=== PATIENT | female | born 1995 | race Two or more races ===

== ENCOUNTER 2017-08-22 21:00 | Emergency (ER) | payer OTHER ==
--- NOTE | 2017-08-22 21:08 | EDPHY ---
General Narrative: 0344AM: Patient evaluated by Mental Health Kerrie with [facility]. Plan for re-eval in am. Borderline/SI/Depression. May need admission vs. D/c Will re-eval in am. 0646: No acute events overnight. Patient pending re-evaluation this morning. ( Carson Sánchez) 1012: Patient has been accepted by [facility] in [place]. EMTALA completed. (Laney Melchor) CHIEF COMPLAINT: Suicidal ideation, depression HISTORY OF PRESENT ILLNESS: Patient arrives by EMS with reports of suicidal ideation and depression. She reports wanting to and has extensively researched how she was going to do so. She is very forthcoming about this and appears to be excited about killing herself. She has attempted to hurt herself in the past by cutting. She also reports striking her head repeatedly on a ceramic syncope prior to arrival. She has no modifying factors or associated complaints. PSYCHIATRIC DIAGNOSES: Depression, previous suicide attempt, cutting PRIOR PSYCHIATRIC EVALUATIONS: Multiple. Most recently 1 year ago after suicide attempt M1/DETAINER: [employer], currently completing at 9:05 p.m. REVIEW OF SYSTEMS: Ten systems reviewed and are negative unless otherwise noted in the HPI EXAMINATION General Appearance: Alert, no distress Head: normocephalic, atraumatic. No hematoma. There is tenderness to the top of the scalp. No lacerations. No Pineda sign. No raccoon eyes. Eyes: Pupils equal and round, no conjunctival pallor or injection. EOMs intact ENT, Mouth: Mucous membranes moist airway patent Neck: Normal inspection, supple, non-tender Respiratory: Lungs are clear to auscultation no wheezing rhonchi or crackles Cardiovascular: Regular rate and rhythm. No murmur Gastrointestinal: Abdomen is nondistended Neurological: A&O, nonfocal, normal gait. Strength is symmetric in all 4 limbs Skin: Warm and dry, no rash. There are well-healed wounds to the anterior aspect of both forearms consistent with chronic cutting. No acute injuries. Extremities: Nontender, no pedal edema. Range of motion is symmetric Psychiatric: Depressed mood and flat affect. Admits to suicidal ideation with thoughts of running front of a car, stabbing herself in the abdomen, cutting her throat, cutting her wrist and pill ingestion. Previous suicide attempt last year by overdose DIFFERENTIAL DIAGNOSES: Including but not limited to suicidal ideation, depression, bipolar, keren MDM: 9:05 p.m. Suicidal ideation with depression and previous attempt of suicide. She does have wounds to the forearm consistent with her cutting but no acute wounds. Patient arrives with EMS and [employer]. [employer] is currently completing an M1 hold. She is aware of this. The patient's mother contacted 911 but is not yet at bedside. 9:10 p.m. Notified that the patient reportedly struck her head repeatedly on a solid object at home. She she admitted she did so to try and kill herself. She has a mild headache from this but no outward signs of trauma on re-examination at this time. CT scan has been ordered. 10:12 p.m. Contacted by industrial ecology technician. They are inquiring about test. I informed her that I would like to wait for the HCG test to return. Labs are currently being drawn. 10:50 p.m. There has been significant delay and laboratory studies for unknown reason. Chemistry is just now returned. HCG negative. I notified the visitor services technician. She will be taken to CT scan. 11:[address] Montoya. CT scan of the head is unremarkable for any acute findings. She is medically cleared for evaluation at this time. 12:00 a.m. Patient resting comfortably. Mental health evaluation pending 12:50 a[address] At this time Dr. Sánchez will assume care the patient. Please see his note for final disposition She is pending mental health evaluation. She has been cooperative. No acute distress. (Refugio Stanton) - Objective Vital Signs: Initial Vital Signs Temperature (C) 99.7 F 08/22/17 21:51 Heart Rate 102 H 08/22/17 21:51 Respiratory Rate 16 08/22/17 21:51 Blood Pressure 112/86 H 08/22/17 21:51 O2 Sat (%) 95 08/22/17 21:51 O2 Delivery Mode Room Air Allergies/Adverse Reactions: orange juice Allergy (Verified 08/22/17 22:14) peanut Allergy (Verified 08/22/17 22:14) Home Medications: Medication Instructions Recorded ALBUTEROL SULFATE 08/22/17 DULoxetine 08/22/17 Flagyl 08/22/17 Gabapentin 08/22/17 Qvar 80 (*) 10/08/17 Laboratory Results: Laboratory Results 08/22/17 22:18 08/22/17 22:18 Medications Given: Discontinued Medications Gabapentin (Neurontin) 600 mg PO EDNOW ONE Stop: 08/23/17 01:43 Last Admin: 08/23/17 01:50 Dose: 600 mg Ibuprofen (Motrin) 800 mg PO EDNOW ONE Stop: 08/23/17 01:24 Last Admin: 08/23/17 01:39 Dose: 800 mg Trazodone HCl (Trazodone) 100 mg PO EDNOW ONE Stop: 08/23/17 01:43 Last Admin: 08/23/17 01:50 Dose: 100 mg Departure - Departure Disposition: Other Psych, Not [facility] Clinical Impression: Suicidal ideation, Severe major depression Condition: Fair Referrals: NONE *PRIMARY CARE P,. [Primary Care Provider] - As per Instructions Report Scribed for: Laney Melchor Report Scribed by: Lizz Tran Date of Report: 08/23/17 Time of Report: :
[2017-08-22 22:28] LABS: % IMMATURE GRANULYOCYTES 0.4 % (0.0-1.1); ABSOLUTE IMMATURE GRANULOCYTES 0.03 10^3/uL (0.00-0.10); ADD DIFF? NO; ADD MORPH? NO; ADD SCAN? NO; ATYPICAL LYMPHOCYTE FLAG 10 (0-99); FRAGMENT RBC FLAG 0 (0-99); HEMATOCRIT 42.9 % (38.0-47.0); LEFT SHIFT FLG 0 (0-99); LIPEMIA HEMOLYSIS FLAG 90 (0-99); MEAN CELL HEMOGLOBIN 31.1 pg (27.9-34.1); MEAN PLATELET VOLUME 10.7 fL (8.7-11.7); PLATELET CLUMPS FLAG 20 (0-99); PLATELET COUNT 226 10^3/uL (150-400); RED BLOOD CELL COUNT 4.82 10^6/uL (4.18-5.33); RED CELL DISTRIBUTION WIDTH 12.3 % (11.5-15.2)
[2017-08-22 22:45] LABS: ANION GAP 9 mEq/L (8-16); CALCIUM 9.5 mg/dL (8.5-10.4); CARBON DIOXIDE 25 mEq/l (22-31); CHLORIDE 103 mEq/L (97-110); CREATININE 0.8 mg/dL (0.6-1.0); ETHANOL SERUM < 10 mg/dL (0-10); GLOMERULAR FILTRATION RATE > 60; GLUCOSE 83 mg/dL (70-100); POTASSIUM 4.2 mEq/L (3.5-5.2); SALICYLATE < 1.0 mg/dL (2.0-20.0); SODIUM 137 mEq/L (134-144)
[2017-08-23] MEDS ORDERED: IBUPROFEN 200 MG TAB PO ONE (01:23)
[2017-08-23] MEDS ORDERED: GABAPENTIN 300 MG CAP PO ONE (01:42)
[2017-08-23] MEDS ORDERED: traZODone 100 MG TAB PO ONE (01:42)
[2017-08-23] MEDS ORDERED: traZODone 50 MG TAB ONE (01:49)
[2017-08-23 09:35] VITALS: RESP 15; O2SAT 97
[2017-08-23 11:02] VITALS: BP 111/76; PULSE 89; TEMP 98.1
== END 2017-08-23 11:02 ==
LOC: EDUNIT#
DX: R45.851 Suicidal ideations (principal); F32.2 Major depressive disorder, single episode, severe without psychotic features
CPT/HCPCS: 80305; G0480